=== PATIENT | female | born 1985 | race Caucasian/White ===

== ENCOUNTER 2021-03-28 09:31 | Outpatient (REF) | payer OTHER, SELFPAY ==
[2021-03-28 10:09] LABS: COVID-19 Test Negative (Negative)
== END 2021-03-28 09:32 | disposition home or self-care (01) ==
LOC: HO.LAB 09:31
PROVIDERS: Visit Provider Internal Medicine
DX: Z20.822 Contact with and (suspected) exposure to COVID-19 (principal)
CPT/HCPCS: 36415; 87635; C9803